=== PATIENT | female | born 1980 | race American Indian/Alaskan Native ===

== ENCOUNTER 2020-11-28 06:52 | Day surgery (SDC) | payer BC, MEDICAID ==
[~2020-11-28 06:52] MED LIST: ACETAMINOPHEN 500 MG TAB PO SCH; CELECOXIB 200 MG CAP PO NR; GABAPENTIN 300 MG CAP PO NR; LACTATED RINGERS 1,000 ML IV SCH; MIDAZOLAM 2 MG/2 ML INJ IV NR; SCOPOLAMINE TRANSDERMAL PATCH 72 HR TD NR
[2020-11-28] MEDS ORDERED: BACTERIOSTATIC SODIUM CHLORIDE 0.9% 30 ML VIAL INFILTRATI ONE (07:06)
--- NOTE | 2020-11-28 07:42 | Short Stay Summary ---
Short Stay Documentation Date of service: 11/28/20 Narrative H&P: Pt is a 39 year old WHO presents for tubal ligation 4 months post . - History Principal diagnosis: Undesired fertility H&P: obtained from office Past Medical History: No medical history Past Surgical History: No surgical history Social history: single - Allergies and Medications Current Medications: Allergies No Known Allergies Allergy (Unverified 11/25/20 16:37) Home Medications Medication Instructions Recorded Confirmed Last Taken Type Rizatriptan Benzoate [Rizatriptan] 10 mg PO PRN PRN 11/25/20 11/25/20 Unknown History Active Medications Acetaminophen (Acetaminophen 500 Mg Tab) 1,000 mg PO PREOP ANIL Stop: 11/28/20 20:00 Cefazolin Sodium (Cefazolin/Sterile Water 2 Gm/20 Ml Syringe) 2 gm IV PREOP NR Celecoxib (Celecoxib 200 Mg Cap) 200 mg PO PREOP NR Stop: 11/28/20 20:00 Gabapentin (Gabapentin 300 Mg Cap) 300 mg PO PREOP NR Stop: 11/28/20 20:00 Lactated Ringer's (Lactated Ringers) 1,000 mls @ 100 mls/hr IV DIRECT ANIL Stop: 11/28/20 23:59 Midazolam HCl (Midazolam 2 Mg/2 Ml Inj) 2 mg IV PREOP NR Stop: 11/28/20 23:00 Scopolamine (Scopolamine Transdermal Patch 72 Hr) 1 each TD PREOP NR Stop: 11/28/20 23:00 - Physical exam General appearance: no acute distress Integumentary: no rash, no growths Lungs: Clear to auscultation, Normal air movement Breasts: deferred Heart: Regular rate, Normal S1, Normal S2 Gastrointestinal: normal, normoactive bowel sounds Female Genitourinary: deferred Rectal Exam: deferred Extremities: No edema - Brief post op/procedure progress note Date of procedure: 11/28/20 Pre-op diagnosis: Undesired fertility Post-op diagnosis: same Procedure: Bilateral Laparoscopic Salpingectomy Anesthesia: GETA Findings: Normal uterus, tubes and ovaries, left sided paratubal cyst Surgeon: MIHIR PARHAM Estimated blood loss: 50-100ml Pathology: list (right and left fallopian tubes) Specimen disposition: to lab Condition: stable - Hospital course Hospital course: unremarkable - Disposition Condition at discharge: Good Disposition: 01 HOME / SELF CARE / HOMELESS Short Stay Discharge Plan Follow up with: BASIL ALICEA [Other] - 7 Days
--- NOTE | 2020-11-28 07:58 | Anesthesia Consultation ---
Anesthesia Consult and Med Hx Date of service: 11/28/20 - Airway Anesthetic Teeth Evaluation: Good ROM Head & Neck: Adequate Mental/Hyoid Distance: Adequate Mallampati Class: Class I Intubation Access Assessment: Probably Good - Pulmonary Exam CTA: Yes - Cardiac Exam Cardiac Exam: RRR - Pre-Operative Health Status ASA Pre-Surgery Classification: ASA1 Proposed Anesthetic Plan: General - Pulmonary Hx Asthma: No - Cardiovascular System Hx Hypertension: No - Central Nervous System Hx Seizures: No Hx Psychiatric Problems: No - Endocrine Hx Renal Disease: No Hx Hypothyroidism: No Hx Hyperthyroidism: No - Hematic Hx Anemia: No Hx Sickle Cell Disease: No - Other Systems Hx Alcohol Use: No Hx Cancer: No - Additional Comments Anesthesia Medical History Comments: no gac, no fhac
--- NOTE | 2020-11-28 07:58 | Anesthesia Day of Surgery ---
Anesthesia Day of Surgery - Day of Surgery Patient Examined: Yes Patient H&P Reviewed: Yes Patient is NPO: Yes Ant's Test: N/A
[2020-11-28] MEDS ORDERED: ceFAZolin/STERILE WATER 2 GM/20 ML SYRINGE IV NR (08:00)
[2020-11-28] MEDS ORDERED: ROCURONIUM 50 MG/5 ML INJ IV ONE (08:58)
[2020-11-28] MEDS ORDERED: propofoL 200 MG/20 ML VIAL IV ONE (08:58)
[2020-11-28] MEDS ORDERED: LIDOCAINE MPF (2%) 20 MG/1 ML VIAL 5 ML ONE (08:58)
[2020-11-28] MEDS ORDERED: METHYLENE BLUE 50 MG/10 ML AMP ONE (09:04)
[2020-11-28] MEDS ORDERED: BUPIVACAINE/PF (0.25%) 2.5 MG/ML 30 ML VIAL INFILTRATI ONE ×2 (09:04→09:50)
[2020-11-28] MEDS ORDERED: dexAMETHasone 20 MG/5 ML VIAL ONE (09:34)
[2020-11-28] MEDS ORDERED: KETOROLAC 30 MG/1 ML INJ ONE (09:34)
[2020-11-28] MEDS ORDERED: SODIUM CHLORIDE 0.9% IRR 1,500 ML BOTTLE IR ONE (09:49)
[2020-11-28] MEDS ORDERED: ONDANSETRON 4 MG/2 ML INJ IV PRN (10:00)
[2020-11-28] MEDS ORDERED: oxyCODONE /ACETAMINOPHEN 5-325MG TAB PO PRN (10:00)
[2020-11-28] MEDS ORDERED: NEOSTIGMINE 10MG/10 ML INJ MDV ONE (10:05)
[2020-11-28] MEDS ORDERED: GLYCOPYRROLATE 0.4 MG/2 ML INJ ONE ×2 (10:05)
[2020-11-28] MEDS: HYDROmorphone 1 MG/1 ML INJ IV PRN ×2 (10:25→11:20)
--- NOTE | 2020-11-28 10:25 | Operative Report ---
Operative Report Operative Report: Preoperative diagnosis: Undesired fertility Postoperative diagnosis: Same Procedure: Bilateral laparoscopic salpingectomy Surgeon: Liset Olvera Anesthesia: General EBL: Minimal IV fluids: 1000 mL Urine output: 250 mL Findings: Normal uterus tubes and ovaries Specimens: Portion of right and left fallopian tube Complications: None The patient was properly identified as herself. She was then taken to the OR with IV running and in place. She was given general anesthesia without difficulty. She was placed in a dorsal lithotomy position. She was then prepped and draped in normal sterile fashion. Attention was turned to the patient's vagina. Her bladder was drained of clear urine with a red rubber c atheter. The speculum was then placed the patient's vagina. The cervix was visualized and grasped with tenaculum. The acorn cannula was then inserted. The surgeon's gloves were changed and attention turned to the patient's abdomen. A small incision was made in the patient's umbilicus incision a 5 mm trocar was placed. The laparoscope confirmed intra-abdominal placement. The abdomen was insufflated with CO2 gas to approximately 25 mmHg. Both fallopian tubes were identified. With direct visualization a second trocar was placed through an incision in the left lower quadrant. Both tubes were found and followed out to the fimbriated ends. Each tube was cauterized at the portion nearest the cornua, then cauterized across the broad ligament until the tube was completely detached. There was excellent hemostasis at the end of this portion of the procedure. Each tube was handed off for pathology. At this point the abdomen was deflated. All instruments were then removed from the abdomen. The incisions were then closed with 4-0 Monocryl. The incisions were also injected with quarter percent Marcaine. The patient tolerated the procedure well she was then awakened and taken recovery in stable condition. Sponge needle and instrument counts were correct 2.
--- NOTE | 2020-11-28 13:09 | Post Anesthesia Evaluation ---
- Post Anesthesia Evaluation Patient Participated: Yes Airway Patent: Yes Stable Respiratory Function: Yes Nausea/Vomiting: No Temp > 96.8F: Yes Pain Manageable: Yes Adequeate Hydration: Yes Anesthesia Complications: No
[2020-11-28 14:03] VITALS: BP 109/62
== END 2020-11-28 12:50 | disposition home or self-care (01) ==
LOC: OR 06:52
PROVIDERS: ATTEND Obstetrics & Gynecology
DX: Z64.0 Problems related to unwanted pregnancy (principal); Z79.899 Other long term (current) drug therapy; Z98.890 Other specified postprocedural states
CPT/HCPCS: 58661; 81025; 88302; J0690; J1100; J1170; J1885; J2250; J2405; J2704; J2710; J7120; Q9968